=== PATIENT | male | born 1985 ===

== ENCOUNTER 2018-12-09 09:04 | Emergency (ER) | payer SELFPAY ==
[~2018-12-09] VITALS: Ht 175.3 cm; Wt 59.6 kg
[2018-12-09] MEDS ORDERED: KETOROLAC 30 MG/1 ML ONE (09:28)
[2018-12-09] MEDS ORDERED: KETOROLAC 30 MG/1 ML IM ONE (09:30)
--- NOTE | 2018-12-09 09:31 | NUR ---
Patient transported for xray at this time
--- NOTE | 2018-12-09 09:52 | NUR ---
Patient medicated as ordered and documented for 10/10 left rib pain. Call pratt within reach.
--- NOTE | 2018-12-09 10:43 | NUR ---
Discharge instructions discussed with patient including smoking cessation, pneumonia prevention and incentive spirometry usage. Patient verbalizes understanding. Patient dresses independently.
[2018-12-09 10:44] VITALS: BP 94/50
== END 2018-12-09 10:46 | disposition home or self-care (01) ==
LOC: ED 10:40
DX: S20.212A Contusion of left front wall of thorax, initial encounter (principal); W19.XXXA Unspecified fall, initial encounter; Y93.89 Activity, other specified; Y92.098 Other place in other non-institutional residence as the place of occurrence of the external cause; Y99.8 Other external cause status
CPT/HCPCS: 71101; 96372; 99283; J1885